=== PATIENT | male | born 1930 | race Caucasian/White ===

== ENCOUNTER → 2017-12-25 | Outpatient (CLI) | payer OTHER, MEDICARE ==
[~2017-12-25] MED LIST: Advair HFA 230/21 IH; CEFDINIR300 MG PO; DIOVAN40 MG; Diovan HCT 160/25 PO; FLOMAX0.4 M1 PO; Flomax PO; Norvasc PO; PROAIR HFA8.5 GM IH; Percocet 5/325,Endoc PO; Zyvox PO; predniSONE PO
== END | disposition home or self-care (01) ==
LOC: EKG 13:00
DX: I51.7 Cardiomegaly (principal); I05.1 Rheumatic mitral insufficiency; I06.1 Rheumatic aortic insufficiency; I45.9 Conduction disorder, unspecified; R60.9 Edema, unspecified; I87.2 Venous insufficiency (chronic) (peripheral); R73.03 Prediabetes
CPT/HCPCS: 93306